=== PATIENT | female | born 1955 | race Caucasian/White ===

== ENCOUNTER 2017-04-11 08:16 | Day surgery (SDC) | payer OTHER ==
[~2017-04-11] VITALS: Ht 170.2 cm; Wt 148.8 kg
--- NOTE | ~2017-04-11 | O ---
[facility] [place] [address] OPERATIVE REPORT Name: LUCIANO CARO Room #: 150-12 [facility] M..#: [id number] Admission: 04/11/17 Attend Phys: Delmer Yadav MD Discharge: Date of : 53 Report #: [id number] THIS REPORT FOR: //name// CC: Duane Yadav DATE OF SERVICE: 04/11/2017 PREOPERATIVE DIAGNOSIS: Chronic maxillary and ethmoid sinusitis. POSTOPERATIVE DIAGNOSIS: Chronic maxillary and ethmoid sinusitis. OPERATIVE PROCEDURE: Endoscopic bilateral revision maxillary antrostomy and complete ethmoidectomy, image guidance surgery ANESTHESIA: General by laryngeal mask. DESCRIPTION OF PROCEDURE: The patient was taken to the operating room and placed in supine position. General anesthesia was induced by laryngeal mask. Once adequate general anesthesia was obtained, local nasal anesthesia was induced by submucoperiosteal injection of 1% lidocaine with 1:100,000 epinephrine and topical application of cocaine solution. The patient was then draped in a sterile manner. The patient also was calibrated to the landmarks, image guidance system for image guidance surgery throughout the procedure. The nasal endoscope was used to visualize the right nasal cavity. There was purulence coming from the maxillary sinus. The uncinate process was still intact, and there was no opening readily identifiable with a lot of swelling around the soft fontanelle. The microdebrider was used to remove the uncinate process, but I still could not find the natural opening of the sinus. The curved suction on the image guidance system was placed into the sinus through the natural opening, and there was a large amount of swollen polypoid tissue. I was able to remove this tissue back and remove the soft fontanelle in order to create a large maxillary opening and within the sinus itself was thick polypoid tissue and purulence. This was suctioned and also debrided in order to make a large maxillary opening. The uncinate process was removed superiorly up into the anterior ethmoid air cells and then followed into the frontal duct where polyps were removed in order to make a large opening into the frontal sinus, and then finally, there was 1 posterior ethmoid air cell which was not open, and this was opened as well. I went back and confirmed opening into the sphenoid sinus as well. On the left side, the exact same procedure was performed. Surgiflo was placed into the ethmoid cavity and middle meatus for hemostasis. The patient tolerated the procedure well. Blood loss was approximately [address] [address] OPERATIVE REPORT Name: LUCIANO CARO Room #: 150-[address] [facility]..#: [id number] Admission: 04/11/17 Attend Phys: Delmer Yadav MD Discharge: Date of : 53 Report #: [id number] The patient was then awoken and taken to recovery room in stable condition for postoperative monitoring. By: 1145 [id number] Delmer Yadav MD /morgan
--- NOTE | ~2017-04-11 | EKG ---
[address] [address] ELECTROCARDIOGRAM REPORT Name: LUCIANO CARO Room #: 150-[address] [place] [address].#: [id number] Admission: 04/11/17 Attend Phys: Delmer Yadav MD Discharge: Date of : 53 Report #: [id number] THIS REPORT FOR: //name// [facility] Test Date: 2017-04-11 Test Time: 09:25:35 Pat Name: LUCIANO CARO Department: Room: 150 Gender: F Student Services Advisor: ACE : 1955 Requested By: Delmer Yadav Order Number: [id number] MD: Devon Zambrano Measurements Intervals [place] Rate: 73 P: 48 TX: 202 QRS: 40 QRSD: 117 T: -2 QT: 389 QTc: 429 Interpretive Statements Sinus rhythm Nonspecific intraventricular conduction delay Baseline wander in lead(s) V1 No previous ECG available for comparison Electronically Signed On 04-11-2017 11:08:23 CDT by Devon Zambrano [email or web address] <ELECTRONICALLY SIGNED> By: Devon Zambrano MD 04/11/17 1108 D: [id number] 4 Devon Zambrano MD /BUTCH
[~2017-04-11 08:16] MED LIST: AMARYL2 MG PO; FISH OIL 1,001000 M2 PO; LASIX 40 MG TAB40 M2 PO; LIPITOR 20 MG T20 M1 PO; NAPROSYN500 MG PO; NEURONTIN 300M300 M2 PO; PRINIVIL20 MG PO; PROAIR HFA8.5 GM INH; SINUS NASAL SPR30 M1 NASAL; SYNTHROID25 MCG PO; TYLENOL325 MG PO
[2017-04-11 09:20] LABS: CALCIUM 8.7 mg/dL (8.5-10.1); CREATININE 1.8 mg/dL (0.6-1.0); POTASSIUM 3.7 mmol/L (3.5-5.1)
[2017-04-11 09:37] VITALS: BP 187/95
[2017-04-11 12:11] VITALS: BP 187/95
== END 2017-04-11 13:30 | disposition home or self-care (01) ==
LOC: TBA 08:16 → OR 08:16
PROVIDERS: Otolaryngology
DX: J32.0 Chronic maxillary sinusitis (principal); J32.2 Chronic ethmoidal sinusitis; Z88.5 Allergy status to narcotic agent; Z88.1 Allergy status to other antibiotic agents; Z88.8 Allergy status to other drugs, medicaments and biological substances
CPT/HCPCS: 50010; 50101; 50286; 50386; 50398; 50573; 51751; 52290; 52291; 62110; 62900; 64037; 70005

== ENCOUNTER → 2020-01-16 | Outpatient (CLI) | payer OTHER, MEDICARE ==
[~2020-01-16] MED LIST changes: +ALLOPURINOL 10100 M1 PO; +BUDESONIDE0.5 MG/2 M NASAL; +CARBIDOPA-LEVO1 EAC9 PO; +IRBESARTAN150 MG PO; +LEVOTHYROXINE25 MCG PO; +MUPIROCIN22 GM NASAL; +SALINE NASAL SP88 ML NASAL; +TURMERIC PO; +TYLENOL EXTRA500 MG PO; +VITAMIN D3 PO
== END ==
LOC: LAB 07:57
PROVIDERS: ATTEND Student in an Organized Health Care Education/Training Program
DX: Z01.812 Encounter for preprocedural laboratory examination (principal); Z11.59 Encounter for screening for other viral diseases

== ENCOUNTER 2020-01-21 10:20 | Day surgery (SDC) | payer OTHER, MEDICARE ==
[~2020-01-21] VITALS: Ht 170.2 cm; Wt 134.7 kg
--- NOTE | ~2020-01-21 | O ---
[facility] [place] [address] OPERATIVE REPORT Name: LUCIANO CARO Room #: 150-4 [facility]#: [id number] Admission: 01/21/20 Attend Phys: Tanisha oRwe, Discharge: Date of : 53 Report #: [id number] THIS REPORT FOR: cc: Duane Salazar,Duane Yancey,Tanisha Hampton MD ~ CC: Duane Rowe DATE OF SERVICE: 01/21/2020 PREOPERATIVE DIAGNOSIS: Left carpal tunnel syndrome. POSTOPERATIVE DIAGNOSIS: Left carpal tunnel syndrome. PROCEDURE PERFORMED: Left endoscopic carpal tunnel release. SURGEON: Tanisha Rowe MD ANESTHESIA: General mask anesthesia. ESTIMATED BLOOD LOSS: Minimal. TOURNIQUET TIME: 16 minutes. COMPLICATIONS: None. CONDITION: Stable. DISPOSITION: Recovery room. INDICATIONS: The patient is a 64-year-old female with the above-mentioned diagnosis. She elects for operative treatment. The risks, benefits, alternatives and complications were discussed including but not limited to infection, damage to vessels or nerves, incomplete relief or worsening of any symptoms. Informed consent was obtained. The correct extremity was identified and labeled by myself after verbal confirmation of the patient as well as visual confirmation and signed informed consent. DESCRIPTION OF PROCEDURE: The patient was brought back to the Operating Room and placed on the operating table in supine position. She received preoperative antibiotics. Tourniquet was placed over padding on the patient's left upper extremity. The left upper extremity was sterilely prepped and draped in the usual fashion. Final timeout was taken to verify correct patient, operative procedure, operative site, all concurred. The arm was elevated, exsanguinated and tourniquet inflated. The entire procedure was done with the aid of [address] [place] [address] OPERATIVE REPORT Name: LUCIANO CARO Room #: 150-4 [facility]#: [id number] Admission: 01/21/20 Attend Phys: Tanisha Rowe, Discharge: Date of : 53 Report #: [id number] times loupe magnification. Next, a transverse incision was made at few millimeters proximal to the distal wrist crease in line with ulnar border of the palmar longus tendon. Dissection was carried down through subcutaneous tissue with tenotomy scissors. The antebrachial fascia was identified and incised. It was then incised for a few millimeters proximal. Next, an oblique incision was made distal to the hook of hamate in line with the ring finger. The fat was elevated off the fascia. The fascia was carefully incised. Next, the [place] elevator was placed through the carpal tunnel from proximal to distal to elevate any synovial tissue off the undersurface of the transverse carpal ligament. Next, with the wrist in maximal extension and digital pressure distally, the blunt trocar and cannula was inserted. Blunt trocar was removed. The camera was inserted and I was able to see the nice transverse fibers of the transverse carpal ligament. The blade was brought in distally and the transverse carpal ligament transected distally. Next, the camera was inserted distally and the transverse carpal ligament was transected proximally. Next, camera and cannula were withdrawn and visualized the cut ends of the transverse carpal ligament. Next, each wound was explored. There was ____ muscle variant distally. There was approximately 1 cm of this remained distally. This was incised under direct visualization, so the transverse carpal ligament was released all the way from the antebrachial fascia of the forearm, all the way through the fat in the palm. The nerve looked to be in excellent condition. A [place] elevator was placed through the carpal tunnel and no remnants of the transverse carpal ligament remained. Of note, the entire procedure was done with the aid of 3.5 loupe magnification. Each wound was thoroughly irrigated. Skin was closed with 4-0 nylon suture. The subcutaneous tissue was infiltrated with approximately 5 mL of 0.25% Marcaine. She was placed in a bulky dressing. All fingers were pink with brisk capillary refill at the conclusion of the case after deflation of tourniquet. All sponge and needle counts were correct. The patient was transferred to postoperative recovery room in stable condition. By: [id number] Tanisha Rowe MD /morgan
[2020-01-21 11:04] LABS: CALCIUM 9.5 mg/dL (8.5-10.1); CREATININE 1.9 mg/dL (0.6-1.0)
[2020-01-21 11:10] LABS: ALBUMIN 3.9 g/dL (3.4-5.0); TOTAL BILIRUBIN 0.4 mg/dL (0.2-1.0); TOTAL PROTEIN 7.8 g/dL (6.4-8.2)
--- NOTE | 2020-01-21 11:38 | EKG ---
[facility] [place] [address] ELECTROCARDIOGRAM REPORT Name: LUCIANO CARO Room #: 150-[address] [place] [address]..#: [id number] Admission: 01/21/20 Attend Phys: Tanisha Rowe, Discharge: Date of : 53 Report #: [id number] THIS REPORT FOR: cc: Duane Salazar David J. DO Couchonnal, Luis F. MD ~ THIS REPORT FOR: //name// [facility] Test Date: 2020-01-21 Test Time: 11:25:44 Pat Name: LUCIANO CARO Department: Room: 150 4 Gender: F Amr Physician: JERZY : 1955 Requested By: Tanisha Rowe Order Number: [id number] MD: Devon Zambrano Measurements Intervals [place] Rate: 68 P: [place]: QRS: 33 QRSD: 114 T: 58 QT: 396 QTc: 422 Interpretive Statements Sinus rhythm Incomplete left bundle branch block Compared to ECG 04/11/2017 09:25:35 Electronically Signed On 01-21-2020 11:38:08 CDT by Devon Zambrano [email or web address] <ELECTRONICALLY SIGNED> By: Devon Zambrano MD 01/21/20 1138 1125 1125 Devon Zambrano MD /EPI
[2020-01-21 12:01] VITALS: BP 160/83
[2020-01-21 13:03] VITALS: BP 160/83
== END 2020-01-21 13:50 | disposition home or self-care (01) ==
LOC: OR 10:20 → TBA 10:20 → OR 13:50
PROVIDERS: ATTEND Orthopaedic Surgery Hand Surgery
DX: G56.02 Carpal tunnel syndrome, left upper limb (principal); M65.342 Trigger finger, left ring finger; I10 Essential (primary) hypertension; E11.9 Type 2 diabetes mellitus without complications; M19.90 Unspecified osteoarthritis, unspecified site; E78.00 Pure hypercholesterolemia, unspecified; Z79.899 Other long term (current) drug therapy; Z98.890 Other specified postprocedural states
CPT/HCPCS: 50010; 50101; 50386; 56526; 56969; 57006; 57091; 57179; 62110; 62900; 70005